=== PATIENT | male | born 2000 | race Two or more races ===

== ENCOUNTER 2024-09-08 09:05 | Day surgery (SDC) | payer MEDICAID, SELFPAY ==
[2024-09-07 11:04] VITALS: BMI 20.4
[2024-09-07 11:59] LABS: Basophils % (Auto) 1 % (0-2.5); Eosinophils # (Auto) 0.1 Thou/mm3 (0.0-0.5); Eosinophils % (Auto) 2 % (0-10); Hematocrit 44.8 % (41.0-53.0); Hemoglobin 15.9 g/dL (13.5-16.0); Immature Granulocytes % (Auto) 0 % (0-0); Lymphocytes # (Auto) 1.8 Thou/mm3 (1.0-4.8); Lymphocytes % (Auto) 36 % (10-50); Mean Corpuscular HGB Conc 35.5 g/dl (31.0-37.0); Mean Corpuscular Volume 85 fL (80-100); Monocytes # (Auto) 0.6 Thou/mm3 (0.0-0.8); Monocytes % (Auto) 11 % (0-12); Neutrophils # (Auto) 2.5 Thou/mm3 (1.8-7.7); Neutrophils % (Auto) 50 % (37-80); Nucleated Red Blood Cell % 0 /100 WBC (0); Platelet Count 249 Thou/mm3 (140-440); RDW Standard Deviation 38.4 fL (35.1-43.9)
[2024-09-07 12:07] LABS: Anion Gap 6 (7-16); BUN/Creatinine Ratio 10 Ratio (12-20); Blood Urea Nitrogen 10 mg/dL (9-23); Calcium 9.4 mg/dL (8.3-10.6); Carbon Dioxide 30.5 mMol/L (20.0-31.0); Chloride 104 mMol/L (98-107); Glucose 97 mg/dL (74-106); Osmolality,Calculated 278 (275-295); Potassium 4.2 mMol/L (3.4-5.1); Sodium 140 mMol/L (136-145); eGFR > 60 See Note
[2024-09-08] VITALS (8 sets, daily range): BP systolic 113–135; BP diastolic 80–96; PULSE 50–68; RESP 12–20; TEMP 36.2–36.4; O2SAT 99–100; BMI 20.5
[2024-09-08] MEDS: RINGERS LACTATED 1000 ML 1,000 ML 20 ML IV (09:39)
--- NOTE | 2024-09-08 11:05 | PD.SUROPNT ---
Date of Procedure 09/08/24 Pre Op Diagnosis Incarcerated right inguinal hernia Post Op Diagnosis Incarcerated right inguinal hernia Procedure Repair of incarcerated right inguinal hernia with mesh Findings Indirect right inguinal hernia with incarcerated omentum Procedure Description Patient brought into the operating room in supine position. After administration of general endotracheal anesthesia, patient's right groin was shaved, prepped and draped in standard surgical manner. The right inguinal crease was anesthetized with half percent Marcaine. An approximately 6 cm incision was made and dissection was carried to subcutaneous tissue. The Jan's fascia was divided and the external oblique aponeurosis was opened towards the external ring. The hernia sac and the spermatic cord structures were from the posterior aspect of the external oblique aponeurosis at the level of pubic tubercle. The hernia sac was then meticulously dissected off the spermatic cord structures at the level of internal ring. The hernia sac was opened and the contents that were incarcerated omentum, reduced. The hernia sac was then ligated at the level of internal ring. The floor of inguinal canal was then reconstructed with ultra Pro proceed mesh. The mesh was secured with running 2-0 Prolene suture. The mesh secured medially to the pubic tubercle, superiorly into the conjoin tendon, inferiorly and to the shelving edge of inguinal ligament, the mesh was placed around the cord structures and tacked under the external oblique aponeurosis laterally. The area was copiously and thoroughly washed and irrigated, all the fluids were suctioned and the suction fluid returned clear. Hemostasis was adequate and satisfactory. External oblique aponeurosis was closed with running 2-0 Vicryl suture, and Jan's fascia was closed with interrupted suture using 3-0 Vicryl. The incision was closed with 4-0 Monocryl in subcutaneous fashion. Instruments, needles and sponge counts were reported to be correct ?2. Patient tolerated the procedure well. He was extubated, breathing spontaneously and without difficulty and was transferred to postanesthesia care in stable condition. Anesthesia GETA and local Pathology / specimen Other (Hernia sac) Estimated Blood Loss 5 Condition Stable Disposition PACU Surgeon Flor Elizondo MD Surgical Staff Operation Date: 09/08/24 11:45 Case Staff Anesthesiologist: Reji Navarro RN First Assistant: Brijesh Hamlin
--- NOTE | 2024-09-08 11:15 | SUR.PHASEI ---
1115: Pt. arrived with oral airway in place, vitals stable, breathing unlabored, no signs of distress, dressing to lower ABD CDI, no active bleed noted, report received from Lyn GIBBONS and Mary DUGGAN.
[2024-09-08] MEDS: fentaNYL CIT INJ 50 mCg/ML AMP 2ML 25 MCG IVP (11:42)
--- NOTE | 2024-09-08 11:53 | SUR.PHASEII ---
1153: received report from URBAN Rivera. pt alert and oriented x3. denies any pain or discomfort. no s/s of resp. distress or discomfort. dressing to left abdomen clean, dry and intact, no bleeding or discharged noted, abdominal binder in place.
--- NOTE | 2024-09-08 11:56 | SUR.PHASEII ---
1156: pt able to drink water with ice without any difficulty.
--- NOTE | 2024-09-08 12:23 | SUR.PHASEII ---
1223: Pt. AAOx4, vitals stable, breathing unlabored, no complaint of pain or nausea, dressing to lower ABD CDI, no active bleed noted, pt. in process of getting discharged. 1229: Pt. ambulated to wheelchair with steady gait and no assist, no complications. Pt. tolerated sips of water well, dressing to lower ABD remained CDI, no active bleed noted.
--- NOTE | 2024-09-08 12:29 | SUR.PHASEII ---
1210: pt awake, alert, dressing and sitting in chair awaiting family for discharge isntructions, able to tolerate oral fluids without difficulty swallowing, report from Zulema DUGGAN 1223: report to Nicole DUGGAN 1229: Discharge instructions given with friend present, all questions answered, pt and friend verbalize understanding.
== END 2024-09-08 12:29 | disposition home or self-care (01) ==
PROVIDERS: PCP Family Medicine; Referring Provider Surgery; Visit Provider Surgery
PROC: (CPT 49507; principal; 2024-09-08 11:30)
DX: K40.30 Unilateral inguinal hernia, with obstruction, without gangrene, not specified as recurrent (principal)
CPT/HCPCS: 49507; 36415; 80048; 85025; A4217; A4649; C1781; J0131; J0690; J1100; J2371; J2405; J2704; J3010; J3490; J7120